=== PATIENT | female | born 1955 | race Two or more races ===

== ENCOUNTER 2017-08-19 10:18 | Inpatient (IN) | payer MEDICAID ==
[~2017-08-19] VITALS: Ht 167.6 cm; Wt 103.5 kg
[2017-08-19 11:33] LABS: Hemoglobin 15.9 g/dL (12.2-16.2)
[2017-08-19 11:34] LABS: Basophils # (auto) 0 uL; Basophils % (auto) 0.2 % (0.0-2.0); Eosinophils # (auto) 0.1 uL; Eosinophils % (auto) 0.5 % (0.0-7.0); Hematocrit 49.1 % (36.0-46.0); Lymphocytes # (auto) 2.2 uL; Lymphocytes % (auto) 17.7 % (10.0-50.0); Mean Corpuscular Hemoglobin 30.8 pg (28.0-32.0); Mean Corpuscular Hgb Conc. 32.5 g/dL (32.0-36.0); Mean Corpuscular Volume 94.8 fL (80.0-100.0); Monocytes # (auto) 0.6 uL; Monocytes % (auto) 5.2 % (0.0-12.0); Neutrophils # (auto) 9.3 uL; Neutrophils % (auto) 76.4 % (37.0-80.0); Platelet Count (auto) 508 10^3/uL (140-450); Red Blood Cells 5.17 10^6/uL (4.0-5.20); Red Cell Distribution Width 15.6 % (11.8-14.3); White Blood Cell 12.2 10^3/uL (4.4-10.8)
[2017-08-19 11:47] LABS: Anion Gap 9 (5-15); BUN/Creatinine Ratio 19.2; Blood Alcohol < 3.0 mg/dL (0-5); Blood Urea Nitrogen 15 mg/dL (7-18); Calcium 9.4 mg/dL (8.5-10.1); Carbon Dioxide 22 mmol/L (21-32); Chloride 112 mmol/L (98-107); GFR African American 97 mL/min; GFR Non-African American 80 mL/min; Glucose 116 mg/dL (74-106); Potassium 3.2 mmol/L (3.5-5.1); Sodium 143 mmol/L (136-145)
[2017-08-19 12:24] LABS: Amphetamine Screen, Urine NEGATIVE (NEGATIVE); Barbiturate Scree,Urine NEGATIVE (NEGATIVE); Benzodiazephine Screen, Urine NEGATIVE (NEGATIVE); Cannabinoid Screen, Urine NEGATIVE (NEGATIVE); Cocaine Screen, Urine NEGATIVE (NEGATIVE); Opiate Scree,Urine NEGATIVE (NEGATIVE); Phencyclidine Screen, Urine NEGATIVE (NEGATIVE)
[2017-08-20 07:24] LABS: Urine Bacteria MOD /hpf (None Seen); Urine Blood 2+ /uL (Negative); Urine Mucus MANY (None Seen); Urine Specific Gravity 1.029 (1.001-1.035); Urine WBC 45 /hpf (0 - 5)
[2017-08-20] MEDS ORDERED: POTASSIUM CHL 20 Meq TABLET PO ONE (08:00)
[2017-08-20] MEDS: NITROFURANTOIN (MONO) 100 mg CAP PO SCH ×2 (08:51→09:56)
[2017-08-20] MEDS ORDERED: SODIUM CHLORIDE 0.9% 500 ML IV ONE (11:15)
[2017-08-20] MEDS ORDERED: cefTRIAXone 1GM/10ml IVPUSH 10 ML IV ONE (11:15)
[2017-08-20] MEDS ORDERED: ONDANSETRON HCL 4 MG/2 ML VIAL IV PRN (12:00)
[2017-08-20] MEDS ORDERED: MULTIPLE VITAMIN TAB PO ONE (12:00)
[2017-08-20] MEDS ORDERED: ACETAMINOPHEN 325 MG TAB PO PRN (12:00)
[2017-08-20] MEDS ORDERED: DEXTROSE (50%) 50ML SYRG IV PRN (12:00)
[2017-08-20 13:09] LABS: Albumin 3.8 g/dL (3.4-5.0); BUN/Creatinine Ratio 19.3; Bilirubin, Total 0.4 mg/dL (0.2-1.0); Calcium 9.3 mg/dL (8.5-10.1); Potassium 3.2 mmol/L (3.5-5.1); Total Protein 8.4 g/dL (6.4-8.2)
[2017-08-20] MEDS: SODIUM CHLOR 0.9% PF (SALINE LOCK) 10ML VIAL IV SCH (13:55)
[2017-08-20] MEDS ORDERED: LABETALOL HCL 5 MG/ML ML 20ML VIAL IV ONE ×2 (14:00→14:15)
[2017-08-20] MEDS ORDERED: LOPERAMIDE HCL 2 MG CAP PO PRN (14:00)
[2017-08-20] MEDS: LABETALOL HCL 5 MG/ML ML 20ML VIAL IV PRN ×2 (14:09→16:19)
[2017-08-20] MEDS: metroNIDAZOLE 500 MG TAB PO SCH (14:30)
[2017-08-20] MEDS ORDERED: cloNIDine HCL 0.1 MG TAB ONE (14:58)
[2017-08-20] MEDS ORDERED: cloNIDine HCL 0.1 MG TAB PO ONE (15:15)
[2017-08-20] MEDS: ACCU-CHEK COMFORT CURVE STRIP VI SCH ×2 (16:24→22:00)
[2017-08-20] MEDS: InsuLIN REG 1unit/0.01ml Soln (100units/ml) SC SCH (16:24)
[2017-08-20] MEDS: MORPHINE SULFATE 4 MG/ML SYR/VIAL IV PRN (21:07)
[2017-08-20 22:00] VITALS: BP 144/76
[2017-08-21] MEDS: metroNIDAZOLE 500 MG TAB PO SCH ×3 (00:02→07:12)
[2017-08-21] MEDS: NITROFURANTOIN (MONO) 100 mg CAP PO SCH (00:03)
[2017-08-21] MEDS: FAMOTIDINE 20 MG TAB PO SCH ×3 (00:03→21:38)
[2017-08-21] MEDS: SODIUM CHLOR 0.9% PF (SALINE LOCK) 10ML VIAL IV SCH ×4 (00:03→21:39)
[2017-08-21] MEDS: InsuLIN REG 1unit/0.01ml Soln (100units/ml) SC SCH ×5 (00:10→21:39)
[2017-08-21 05:08] LABS: RPR Non Reactive (Non Reactive)
[2017-08-21] MEDS: ACCU-CHEK COMFORT CURVE STRIP VI SCH ×4 (06:45→21:39)
[2017-08-21 07:16] LABS: Basophils # (auto) 0.1 uL; Eosinophils # (auto) 0.1 uL; Hemoglobin 14.7 g/dL (12.2-16.2); Lymphocytes # (auto) 2.2 uL; Monocytes # (auto) 0.6 uL; Red Cell Distribution Width 15.4 % (11.8-14.3)
[2017-08-21 07:18] LABS: Basophils % (auto) 1.2 % (0.0-2.0); Eosinophils % (auto) 0.5 % (0.0-7.0); Hematocrit 44.3 % (36.0-46.0); Mean Corpuscular Hemoglobin 31.5 pg (28.0-32.0); Mean Corpuscular Hgb Conc. 33.1 g/dL (32.0-36.0); Mean Corpuscular Volume 95.1 fL (80.0-100.0); Monocytes % (auto) 5.6 % (0.0-12.0); Neutrophils # (auto) 7.6 uL; Neutrophils % (auto) 71.7 % (37.0-80.0); Platelet Count (auto) 495 10^3/uL (140-450); Red Blood Cells 4.66 10^6/uL (4.0-5.20); White Blood Cell 10.6 10^3/uL (4.4-10.8)
[2017-08-21 07:31] LABS: Albumin 3.7 g/dL (3.4-5.0); Calcium 9.1 mg/dL (8.5-10.1); Potassium 3.2 mmol/L (3.5-5.1)
[2017-08-21 07:35] LABS: Bilirubin, Total 0.8 mg/dL (0.2-1.0); Total Protein 7.5 g/dL (6.4-8.2)
[2017-08-21] MEDS ORDERED: POTASSIUM CHL 20MEQ/100ML 100 ML IV ONE (08:30)
[2017-08-21 09:01] VITALS: BP 157/89
[2017-08-21] MEDS ORDERED: LEVOTHYROXINE SODIUM 100 MCG/5 ML INJ IV ONE (10:15)
[2017-08-21] MEDS ORDERED: LEVOTHYROXINE SODIUM 100 MCG TAB PO ONE (10:15)
[2017-08-21] MEDS ORDERED: LISINOPRIL 10 MG TAB PO ONE (10:15)
[2017-08-21] MEDS ORDERED: POTASSIUM CHL 20 Meq TABLET PO ONE (10:15)
[2017-08-21] MEDS: cefTRIAXone 1GM/10ml IVPUSH 10 ML IV SCH (10:18)
[2017-08-21] MEDS: MULTIPLE VITAMIN TAB PO SCH (10:19)
[2017-08-21] MEDS: MORPHINE SULFATE 4 MG/ML SYR/VIAL IV PRN ×3 (10:20→21:00)
[2017-08-21] MEDS: SOD CHL 0.45% WITH 20MEQ KCL 1,000 ML IV SCH ×2 (12:44→23:35)
[2017-08-21 13:00] VITALS: BP 155/80
[2017-08-21] MEDS ORDERED: HALOPERIDOL LACTATE 5 MG/ML INJ VIAL IM PRN (16:45)
[2017-08-21] MEDS: cloNIDine HCL 0.1 MG TAB PO PRN (17:09)
[2017-08-21 17:39] VITALS: BP 163/90
[2017-08-21 22:00] VITALS: BP 162/87
[2017-08-22 05:00] VITALS: BP 167/106
[2017-08-22] MEDS: SODIUM CHLOR 0.9% PF (SALINE LOCK) 10ML VIAL IV SCH ×3 (06:00→22:04)
[2017-08-22] MEDS: LEVOTHYROXINE SODIUM 100 MCG TAB PO SCH (06:41)
[2017-08-22] MEDS: InsuLIN REG 1unit/0.01ml Soln (100units/ml) SC SCH ×4 (06:41→22:00)
[2017-08-22] MEDS: ACCU-CHEK COMFORT CURVE STRIP VI SCH ×4 (07:00→22:05)
[2017-08-22 08:00] VITALS: BP 164/101
[2017-08-22] MEDS ORDERED: LISINOPRIL 10 MG TAB PO SCH (10:00)
[2017-08-22] MEDS: MULTIPLE VITAMIN TAB PO SCH (10:27)
[2017-08-22] MEDS: FAMOTIDINE 20 MG TAB PO SCH ×3 (10:27→22:04)
[2017-08-22] MEDS: cefTRIAXone 1GM/10ml IVPUSH 10 ML IV SCH (10:36)
[2017-08-22 10:53] LABS: INR 0.94 (0.9-1.15); Partial Thromboplastin Time 26.4 sec (22.64-33.71); Prothrombin Time 10.2 sec (9.37-12.3)
[2017-08-22 10:56] LABS: BUN/Creatinine Ratio 16.7; Calcium 8.8 mg/dL (8.5-10.1); Potassium 3.6 mmol/L (3.5-5.1)
[2017-08-22 13:00] VITALS: BP 164/101
[2017-08-22] MEDS: SOD CHL 0.45% WITH 20MEQ KCL 1,000 ML IV SCH (13:58)
[2017-08-22] MEDS: cloNIDine HCL 0.1 MG TAB PO PRN (14:01)
[2017-08-22] MEDS ORDERED: LISINOPRIL 10 MG TAB PO ONE (16:00)
[2017-08-22] MEDS: Boost Glucose Control 8 Ounces PO SCH (17:25)
[2017-08-22 20:00] VITALS: BP 159/96
[2017-08-22 21:47] VITALS: BP 159/96
[2017-08-23] MEDS: SOD CHL 0.45% WITH 20MEQ KCL 1,000 ML IV SCH (02:30)
[2017-08-23 04:55] VITALS: BP 157/70
[2017-08-23] MEDS: LEVOTHYROXINE SODIUM 100 MCG TAB PO SCH (06:40)
[2017-08-23] MEDS: InsuLIN REG 1unit/0.01ml Soln (100units/ml) SC SCH ×4 (06:40→22:00)
[2017-08-23] MEDS: SODIUM CHLOR 0.9% PF (SALINE LOCK) 10ML VIAL IV SCH ×3 (06:40→22:00)
[2017-08-23] MEDS: ACCU-CHEK COMFORT CURVE STRIP VI SCH ×4 (06:41→22:00)
[2017-08-23] MEDS: Boost Glucose Control 8 Ounces PO SCH ×3 (08:00→18:10)
[2017-08-23 09:08] VITALS: BP 154/87
[2017-08-23] MEDS: LACTATED RINGER'S 1,000 ML IV SCH ×2 (10:15→23:35)
[2017-08-23] MEDS ORDERED: risperiDONE 1 MG TAB PO ONE (10:15)
[2017-08-23] MEDS ORDERED: LEVOTHYROXINE SODIUM 100 MCG/5 ML INJ IV ONE (10:15)
[2017-08-23] MEDS: MULTIPLE VITAMIN TAB PO SCH (10:28)
[2017-08-23] MEDS: cefTRIAXone 1GM/10ml IVPUSH 10 ML IV SCH (10:28)
[2017-08-23] MEDS: FAMOTIDINE 20 MG TAB PO SCH ×2 (10:29→22:00)
[2017-08-23] MEDS: LISINOPRIL 10 MG TAB PO SCH (10:30)
[2017-08-23 13:00] VITALS: BP 153/87
[2017-08-23 17:00] VITALS: BP 147/75
[2017-08-23 20:00] VITALS: BP 161/75
[2017-08-23 22:00] VITALS: BP 161/77
[2017-08-24] VITALS (7 sets, daily range): BP systolic 142–161; BP diastolic 67–86
[2017-08-24 06:09] LABS: Potassium 3.4 mmol/L (3.5-5.1)
[2017-08-24 06:12] LABS: BUN/Creatinine Ratio 15.4
[2017-08-24] MEDS: LEVOTHYROXINE SODIUM 100 MCG TAB PO SCH (06:41)
[2017-08-24] MEDS: SODIUM CHLOR 0.9% PF (SALINE LOCK) 10ML VIAL IV SCH ×3 (06:41→21:21)
[2017-08-24] MEDS: ACCU-CHEK COMFORT CURVE STRIP VI SCH ×4 (06:42→22:10)
[2017-08-24] MEDS: InsuLIN REG 1unit/0.01ml Soln (100units/ml) SC SCH ×4 (06:42→22:00)
[2017-08-24] MEDS: Boost Glucose Control 8 Ounces PO SCH ×3 (08:00→17:52)
[2017-08-24] MEDS: cefTRIAXone 1GM/10ml IVPUSH 10 ML IV SCH (09:00)
[2017-08-24] MEDS: MULTIPLE VITAMIN TAB PO SCH (10:00)
[2017-08-24] MEDS: FAMOTIDINE 20 MG TAB PO SCH ×2 (10:00→21:21)
[2017-08-24] MEDS: LISINOPRIL 10 MG TAB PO SCH (10:00)
[2017-08-24] MEDS: risperiDONE 1 MG TAB PO SCH (10:00)
[2017-08-24] MEDS: LACTATED RINGER'S 1,000 ML IV SCH (12:55)
[2017-08-25] MEDS: LACTATED RINGER'S 1,000 ML IV SCH ×2 (02:15→15:35)
[2017-08-25] MEDS: SODIUM CHLOR 0.9% PF (SALINE LOCK) 10ML VIAL IV SCH ×3 (06:00→21:35)
[2017-08-25] MEDS: InsuLIN REG 1unit/0.01ml Soln (100units/ml) SC SCH ×4 (06:38→21:34)
[2017-08-25] MEDS: ACCU-CHEK COMFORT CURVE STRIP VI SCH ×4 (06:38→21:34)
[2017-08-25] MEDS: LEVOTHYROXINE SODIUM 100 MCG TAB PO SCH (06:39)
[2017-08-25] MEDS: cloNIDine HCL 0.1 MG TAB PO PRN (06:40)
[2017-08-25] MEDS: Boost Glucose Control 8 Ounces PO SCH ×3 (08:11→18:10)
[2017-08-25 08:42] VITALS: BP 154/81
[2017-08-25] MEDS: cefTRIAXone 1GM/10ml IVPUSH 10 ML IV SCH (09:00)
[2017-08-25] MEDS: risperiDONE 1 MG TAB PO SCH (09:43)
[2017-08-25] MEDS: LISINOPRIL 10 MG TAB PO SCH (09:43)
[2017-08-25] MEDS: MULTIPLE VITAMIN TAB PO SCH (09:43)
[2017-08-25] MEDS: FAMOTIDINE 20 MG TAB PO SCH ×2 (09:43→21:34)
[2017-08-25 16:05] VITALS: BP 137/87
[2017-08-25 20:00] VITALS: BP 137/87
[2017-08-25] MEDS: AMOXICILLIN TRIHYDRATE 250 MG CAP PO SCH (21:34)
[2017-08-25 22:00] VITALS: BP 137/87
[2017-08-26] VITALS (7 sets, daily range): BP systolic 133–152; BP diastolic 71–83
[2017-08-26] MEDS: LACTATED RINGER'S 1,000 ML IV SCH (04:55)
[2017-08-26] MEDS: SODIUM CHLOR 0.9% PF (SALINE LOCK) 10ML VIAL IV SCH ×3 (06:00→21:43)
[2017-08-26] MEDS: ACCU-CHEK COMFORT CURVE STRIP VI SCH (06:10)
[2017-08-26] MEDS: InsuLIN REG 1unit/0.01ml Soln (100units/ml) SC SCH (06:10)
[2017-08-26] MEDS: LEVOTHYROXINE SODIUM 100 MCG TAB PO SCH (06:11)
[2017-08-26 06:59] LABS: BUN/Creatinine Ratio 24.7; Calcium 9.5 mg/dL (8.5-10.1); Potassium 3.7 mmol/L (3.5-5.1)
[2017-08-26 07:09] LABS: Eosinophils # (auto) 0.1 uL; Mean Corpuscular Volume 94.8 fL (80.0-100.0); Monocytes # (auto) 1.1 uL
[2017-08-26 07:14] LABS: Basophils # (auto) 0 uL; Basophils % (auto) 0.1 % (0.0-2.0); Eosinophils % (auto) 0.6 % (0.0-7.0); Hematocrit 46.3 % (36.0-46.0); Hemoglobin 15.2 g/dL (12.2-16.2); Lymphocytes # (auto) 3.7 uL; Lymphocytes % (auto) 23.4 % (10.0-50.0); Mean Corpuscular Hemoglobin 31.1 pg (28.0-32.0); Mean Corpuscular Hgb Conc. 32.8 g/dL (32.0-36.0); Monocytes % (auto) 6.9 % (0.0-12.0); Neutrophils # (auto) 10.9 uL; Nucleated Red Blood Cells % 0.3 %; Platelet Count (auto) 357 10^3/uL (140-450); Red Blood Cells 4.89 10^6/uL (4.0-5.20); Red Cell Distribution Width 15.4 % (11.8-14.3); White Blood Cell 15.8 10^3/uL (4.4-10.8)
[2017-08-26] MEDS: Boost Glucose Control 8 Ounces PO SCH ×3 (08:00→18:00)
[2017-08-26] MEDS: risperiDONE 1 MG TAB PO SCH ×2 (10:03→21:43)
[2017-08-26] MEDS: AMOXICILLIN TRIHYDRATE 250 MG CAP PO SCH ×2 (10:03→21:43)
[2017-08-26] MEDS: LISINOPRIL 10 MG TAB PO SCH (10:04)
[2017-08-26] MEDS: FAMOTIDINE 20 MG TAB PO SCH ×2 (10:04→21:44)
[2017-08-26] MEDS: MULTIPLE VITAMIN TAB PO SCH (10:04)
[2017-08-26] MEDS ORDERED: LEVOTHYROXINE SODIUM 100 MCG TAB PO ONE (11:15)
[2017-08-26] MEDS: HYDROcodone-ACET 5/325MG TAB PO PRN (19:40)
[2017-08-26] MEDS ORDERED: AMOXICILLIN TRIHYDRATE 250 MG CAP PO ONE ×2 (21:30→21:35)
[2017-08-27 05:00] VITALS: BP 114/56
[2017-08-27] MEDS: SODIUM CHLOR 0.9% PF (SALINE LOCK) 10ML VIAL IV SCH ×3 (05:27→22:00)
[2017-08-27] MEDS: LEVOTHYROXINE SODIUM 100 MCG TAB PO SCH (06:18)
[2017-08-27 08:00] VITALS: BP 119/61
[2017-08-27] MEDS: Boost Glucose Control 8 Ounces PO SCH ×3 (08:48→18:33)
[2017-08-27 09:00] VITALS: BP 119/61
[2017-08-27] MEDS: AMOXICILLIN TRIHYDRATE 250 MG CAP PO SCH ×2 (09:45→21:15)
[2017-08-27] MEDS: FAMOTIDINE 20 MG TAB PO SCH ×2 (09:46→21:15)
[2017-08-27] MEDS: risperiDONE 1 MG TAB PO SCH ×2 (09:46→21:15)
[2017-08-27] MEDS: MULTIPLE VITAMIN TAB PO SCH (09:46)
[2017-08-27] MEDS: LISINOPRIL 10 MG TAB PO SCH (09:47)
[2017-08-27 12:40] VITALS: BP 116/77
[2017-08-27 17:00] VITALS: BP 137/76
[2017-08-27] MEDS: DOCUSATE SOD 100 MG CAP PO PRN (21:15)
[2017-08-27 22:03] VITALS: BP 99/68
[2017-08-28] MEDS: SODIUM CHLOR 0.9% PF (SALINE LOCK) 10ML VIAL IV SCH ×3 (06:00→21:38)
[2017-08-28 06:13] VITALS: BP 117/67
[2017-08-28] MEDS: LEVOTHYROXINE SODIUM 100 MCG TAB PO SCH (07:26)
[2017-08-28] MEDS: Boost Glucose Control 8 Ounces PO SCH ×3 (07:46→17:31)
[2017-08-28 09:00] VITALS: BP 112/76
[2017-08-28] MEDS: AMOXICILLIN TRIHYDRATE 250 MG CAP PO SCH ×2 (10:47→21:40)
[2017-08-28] MEDS: MULTIPLE VITAMIN TAB PO SCH (10:47)
[2017-08-28] MEDS: FAMOTIDINE 20 MG TAB PO SCH ×2 (10:48→21:39)
[2017-08-28] MEDS: risperiDONE 1 MG TAB PO SCH ×2 (10:48→21:39)
[2017-08-28] MEDS: LISINOPRIL 10 MG TAB PO SCH (10:49)
[2017-08-28 13:00] VITALS: BP 110/70
[2017-08-28 17:00] VITALS: BP 114/66
[2017-08-28] MEDS: HYDROcodone-ACET 5/325MG TAB PO PRN (17:30)
[2017-08-28 20:00] VITALS: BP 124/73
[2017-08-28 22:24] VITALS: BP 124/73
[2017-08-29 05:24] VITALS: BP 120/68
[2017-08-29] MEDS: SODIUM CHLOR 0.9% PF (SALINE LOCK) 10ML VIAL IV SCH ×3 (05:31→22:00)
[2017-08-29] MEDS: LEVOTHYROXINE SODIUM 100 MCG TAB PO SCH (06:42)
[2017-08-29] MEDS: Boost Glucose Control 8 Ounces PO SCH ×3 (08:04→18:00)
[2017-08-29 09:00] VITALS: BP 122/55
[2017-08-29] MEDS: MULTIPLE VITAMIN TAB PO SCH (10:14)
[2017-08-29] MEDS: risperiDONE 1 MG TAB PO SCH ×2 (10:14→22:00)
[2017-08-29] MEDS: FAMOTIDINE 20 MG TAB PO SCH ×2 (10:14→22:00)
[2017-08-29] MEDS: DOCUSATE SOD 100 MG CAP PO PRN (10:14)
[2017-08-29] MEDS: AMOXICILLIN TRIHYDRATE 250 MG CAP PO SCH ×2 (10:14→22:00)
[2017-08-29] MEDS: LISINOPRIL 10 MG TAB PO SCH (10:16)
[2017-08-29 20:00] VITALS: BP 132/74
[2017-08-29 20:29] VITALS: BP 132/74
[2017-08-30 04:58] VITALS: BP 147/51
[2017-08-30] MEDS: SODIUM CHLOR 0.9% PF (SALINE LOCK) 10ML VIAL IV SCH ×3 (06:00→22:00)
[2017-08-30] MEDS: LEVOTHYROXINE SODIUM 100 MCG TAB PO SCH (06:10)
[2017-08-30 07:26] VITALS: BP 128/69
[2017-08-30 08:00] VITALS: BP 128/69
[2017-08-30] MEDS: Boost Glucose Control 8 Ounces PO SCH ×3 (08:00→18:00)
[2017-08-30] MEDS: LISINOPRIL 10 MG TAB PO SCH (10:00)
[2017-08-30] MEDS: AMOXICILLIN TRIHYDRATE 250 MG CAP PO SCH ×2 (10:00→22:00)
[2017-08-30] MEDS: FAMOTIDINE 20 MG TAB PO SCH ×2 (10:00→22:00)
[2017-08-30] MEDS: risperiDONE 1 MG TAB PO SCH ×2 (10:00→22:00)
[2017-08-30] MEDS: MULTIPLE VITAMIN TAB PO SCH (10:00)
[2017-08-30 20:00] VITALS: BP 140/74
[2017-08-30 22:00] VITALS: BP 140/77
[2017-08-31] MEDS: SODIUM CHLOR 0.9% PF (SALINE LOCK) 10ML VIAL IV SCH ×3 (06:00→22:00)
[2017-08-31] MEDS: LEVOTHYROXINE SODIUM 100 MCG TAB PO SCH (06:57)
[2017-08-31] MEDS: Boost Glucose Control 8 Ounces PO SCH ×3 (08:00→17:11)
[2017-08-31] MEDS: risperiDONE 1 MG TAB PO SCH ×2 (10:00→22:00)
[2017-08-31] MEDS: LISINOPRIL 10 MG TAB PO SCH (10:00)
[2017-08-31] MEDS: FAMOTIDINE 20 MG TAB PO SCH ×2 (10:00→22:00)
[2017-08-31] MEDS: MULTIPLE VITAMIN TAB PO SCH (10:00)
[2017-08-31] MEDS: AMOXICILLIN TRIHYDRATE 250 MG CAP PO SCH ×2 (10:00→22:00)
[2017-08-31 20:00] VITALS: BP 135/76
[2017-08-31 21:04] VITALS: BP 135/76
[2017-09-01 05:15] VITALS: BP 144/75
[2017-09-01] MEDS: SODIUM CHLOR 0.9% PF (SALINE LOCK) 10ML VIAL IV SCH ×3 (06:00→22:14)
[2017-09-01] MEDS: LEVOTHYROXINE SODIUM 100 MCG TAB PO SCH (06:40)
[2017-09-01] MEDS: Boost Glucose Control 8 Ounces PO SCH ×3 (08:00→18:00)
[2017-09-01] MEDS: FAMOTIDINE 20 MG TAB PO SCH ×2 (10:00→22:13)
[2017-09-01] MEDS: MULTIPLE VITAMIN TAB PO SCH (10:00)
[2017-09-01] MEDS: LISINOPRIL 10 MG TAB PO SCH (10:00)
[2017-09-01] MEDS: AMOXICILLIN TRIHYDRATE 250 MG CAP PO SCH ×2 (10:00→22:13)
[2017-09-01] MEDS: risperiDONE 1 MG TAB PO SCH ×2 (10:00→22:13)
[2017-09-01 13:00] VITALS: BP 151/81
[2017-09-01] MEDS: HYDROcodone-ACET 5/325MG TAB PO PRN (20:12)
[2017-09-01 22:00] VITALS: BP 155/87
[2017-09-02] MEDS: SODIUM CHLOR 0.9% PF (SALINE LOCK) 10ML VIAL IV SCH ×3 (06:00→21:38)
[2017-09-02] MEDS: LEVOTHYROXINE SODIUM 100 MCG TAB PO SCH (06:46)
[2017-09-02] MEDS: Boost Glucose Control 8 Ounces PO SCH ×3 (08:00→18:13)
[2017-09-02] MEDS: LISINOPRIL 10 MG TAB PO SCH (10:00)
[2017-09-02] MEDS: MULTIPLE VITAMIN TAB PO SCH (10:00)
[2017-09-02] MEDS: risperiDONE 1 MG TAB PO SCH ×2 (10:00→21:38)
[2017-09-02] MEDS: FAMOTIDINE 20 MG TAB PO SCH ×2 (10:00→21:38)
[2017-09-02] MEDS: AMOXICILLIN TRIHYDRATE 250 MG CAP PO SCH ×2 (10:00→21:38)
[2017-09-03] MEDS: SODIUM CHLOR 0.9% PF (SALINE LOCK) 10ML VIAL IV SCH ×3 (05:40→22:00)
[2017-09-03] MEDS: LEVOTHYROXINE SODIUM 100 MCG TAB PO SCH (06:34)
[2017-09-03 08:00] VITALS: BP 128/69
[2017-09-03] MEDS: Boost Glucose Control 8 Ounces PO SCH ×3 (08:00→18:00)
[2017-09-03] MEDS: MULTIPLE VITAMIN TAB PO SCH (10:00)
[2017-09-03] MEDS: FAMOTIDINE 20 MG TAB PO SCH ×2 (10:00→22:00)
[2017-09-03] MEDS: AMOXICILLIN TRIHYDRATE 250 MG CAP PO SCH ×2 (10:00→22:00)
[2017-09-03] MEDS: risperiDONE 1 MG TAB PO SCH ×2 (10:00→22:00)
[2017-09-03] MEDS: LISINOPRIL 10 MG TAB PO SCH (10:00)
[2017-09-03 17:00] VITALS: BP 114/66
[2017-09-03 22:26] VITALS: BP 122/72
[2017-09-04 05:09] VITALS: BP 122/80
[2017-09-04] MEDS: LEVOTHYROXINE SODIUM 100 MCG TAB PO SCH (05:49)
[2017-09-04] MEDS: SODIUM CHLOR 0.9% PF (SALINE LOCK) 10ML VIAL IV SCH ×3 (05:49→21:57)
[2017-09-04 08:00] VITALS: BP 132/79
[2017-09-04] MEDS: Boost Glucose Control 8 Ounces PO SCH ×3 (08:00→18:11)
[2017-09-04 09:00] VITALS: BP 132/79
[2017-09-04] MEDS: risperiDONE 1 MG TAB PO SCH ×2 (10:00→22:06)
[2017-09-04] MEDS: LISINOPRIL 10 MG TAB PO SCH (10:00)
[2017-09-04] MEDS: AMOXICILLIN TRIHYDRATE 250 MG CAP PO SCH ×2 (10:00→22:05)
[2017-09-04] MEDS: FAMOTIDINE 20 MG TAB PO SCH ×2 (10:00→22:06)
[2017-09-04] MEDS: MULTIPLE VITAMIN TAB PO SCH (10:00)
[2017-09-04] MEDS ORDERED: ONDANSETRON HCL 4 MG/2 ML VIAL IV PRN (12:00)
[2017-09-04] MEDS ORDERED: HALOPERIDOL LACTATE 5 MG/ML INJ VIAL IM PRN (12:00)
[2017-09-04] MEDS ORDERED: ACETAMINOPHEN 325 MG TAB PO PRN (12:00)
[2017-09-04] MEDS ORDERED: LOPERAMIDE HCL 2 MG CAP PO PRN (12:00)
[2017-09-04] MEDS ORDERED: DOCUSATE SOD 100 MG CAP PO PRN (12:00)
[2017-09-04 14:00] VITALS: BP 154/72
[2017-09-04 16:54] VITALS: BP 130/64
[2017-09-04] MEDS: HYDROcodone-ACET 5/325MG TAB PO PRN (22:07)
[2017-09-04 23:01] VITALS: BP 103/62
[2017-09-05] MEDS: HYDROcodone-ACET 5/325MG TAB PO PRN ×2 (03:41→10:41)
[2017-09-05] MEDS: SODIUM CHLOR 0.9% PF (SALINE LOCK) 10ML VIAL IV SCH ×2 (06:00→14:00)
[2017-09-05] MEDS: LEVOTHYROXINE SODIUM 100 MCG TAB PO SCH (06:54)
[2017-09-05 08:00] VITALS: BP 137/87
[2017-09-05] MEDS: Boost Glucose Control 8 Ounces PO SCH ×3 (08:00→18:00)
[2017-09-05 08:58] VITALS: BP 137/87
[2017-09-05] MEDS ORDERED: MULTIPLE VITAMIN TAB PO SCH (10:00)
[2017-09-05] MEDS: risperiDONE 1 MG TAB PO SCH (10:39)
[2017-09-05] MEDS: AMOXICILLIN TRIHYDRATE 250 MG CAP PO SCH (10:40)
[2017-09-05] MEDS: FAMOTIDINE 20 MG TAB PO SCH (10:41)
[2017-09-05] MEDS: LISINOPRIL 10 MG TAB PO SCH (10:41)
[2017-09-05 17:08] VITALS: BP 139/83
[2017-09-05 17:52] VITALS: BP 137/87
== END 2017-09-05 21:55 | disposition psychiatric hospital, planned readmission (93) | DRG 720 ==
LOC: ER 10:18 → EDBD 10:18 → OVERFLOW 08-20 10:19 → CENTRAL 08-20 18:44 → WEST WING 08-24 19:40
PROVIDERS: ADMIT Internal Medicine; ATTEND Internal Medicine
DX: A41.9 Sepsis, unspecified organism (principal); G92 Toxic encephalopathy; F29 Unspecified psychosis not due to a substance or known physiological condition; E11.21 Type 2 diabetes mellitus with diabetic nephropathy; J43.9 Emphysema, unspecified; N39.0 Urinary tract infection, site not specified; E11.22 Type 2 diabetes mellitus with diabetic chronic kidney disease; B96.20 Unspecified Escherichia coli [E. coli] as the cause of diseases classified elsewhere; E03.9 Hypothyroidism, unspecified; E66.9 Obesity, unspecified; E78.5 Hyperlipidemia, unspecified; F17.210 Nicotine dependence, cigarettes, uncomplicated; F41.9 Anxiety disorder, unspecified; I12.9 Hypertensive chronic kidney disease with stage 1 through stage 4 chronic kidney disease, or unspecified chronic kidney disease; I25.10 Atherosclerotic heart disease of native coronary artery without angina pectoris; K21.9 Gastro-esophageal reflux disease without esophagitis; M19.90 Unspecified osteoarthritis, unspecified site; N18.2 Chronic kidney disease, stage 2 (mild); Z90.710 Acquired absence of both cervix and uterus; Z79.899 Other long term (current) drug therapy; Z90.49 Acquired absence of other specified parts of digestive tract; Z68.36 Body mass index [BMI] 36.0-36.9, adult
CPT/HCPCS: 36415; 51702; 70450; 71045; 80048; 80053; 80307; 80320; 81001; 82962; 83036; 84443; 85025; 85610; 85730; 86592; 86703; 87045; 87086; 87088; 87186; 87493; 87899; 93005; 96361; 96374; 97163; J3480; J3490